=== PATIENT | female | born 1990 ===

== ENCOUNTER 2017-07-23 08:08 | Emergency (ER) | payer OTHER ==
[2017-07-23 08:08] VITALS: BMI 24.7
--- NOTE | 2017-07-23 09:07 | C.PDOC ---
History Of Present Illness 26 y/o female presents to ED with complaints of cough and body aches since yesterday. Patient is at ED with son who developed flu like symptoms. Patient denies vomiting, nausea, chest pain, diarrhea or any other complaints at this time. Time Seen by Provider: 07/23/17 08:28 Chief Complaint (Nursing): Cough, Cold, Congestion History Per: Patient History/Exam Limitations: no limitations Onset/Duration Of Symptoms: Days Current Symptoms Are (Timing): Still Present Associated Symptoms: Cough Past Medical History Reviewed: Historical Data, Nursing Documentation, Vital Signs Vital Signs: Last Vital Signs Temp 98.3 F 07/23/17 09:28 Pulse 80 07/23/17 09:28 Resp 16 07/23/17 09:28 BP 123/73 07/23/17 09:28 Pulse Ox 97 07/23/17 09:51 - Medical History PMH: No Chronic Diseases Surgical History: No Surg Hx - [facility] Procedures DELIVERY OF PRODUCTS OF CONCEPTION, EXTERNAL APPROACH (11/23/15) INTRODUCE OF OTH THERAP SUBST INTO FEM REPROD, VIA OPENING (11/23/15) REPAIR PERINEUM MUSCLE, OPEN APPROACH (11/23/15) Family History: States: No Known Family Hx - Social History Hx Alcohol Use: No Hx Substance Use: No - Immunization History Hx Tetanus Toxoid Vaccination: No Hx Influenza Vaccination: No Hx Pneumococcal Vaccination: No Review Of Systems Constitutional: Negative for: Fever, Chills Respiratory: Positive for: Cough Gastrointestinal: Negative for: Nausea, Vomiting, Diarrhea Musculoskeletal: Positive for: Other (body aches) Skin: Negative for: Rash Physical Exam - Physical Exam Appears: Non-toxic, No Acute Distress Skin: Warm, Dry, No Rash Head: Atraumatic, Normacephalic Eye(s): bilateral: Normal Inspection, EOMI Ear(s): Bilateral: Normal Nose: Normal, No Flaring, No Discharge Oral Mucosa: Moist Throat: Normal, No Erythema, No Exudate Neck: Supple Cardiovascular: Rhythm Regular, No Murmur Respiratory: Normal Breath Sounds, No Rales, No Rhonchi, No Wheezing Gastrointestinal/Abdominal: Soft, No Tenderness, No Guarding, No Rebound Extremity: Bilateral: Atraumatic, Normal Color And Temperature, Normal ROM Neurological/Psych: Oriented x3, Normal Speech Gait: Steady ED Course And Treatment O2 Sat by Pulse Oximetry: 97 (RA) Pulse Ox Interpretation: Normal Medical Decision Making Medical Decision Making: Patient with multi-symptom complaints, and sick child with flu like symptoms. Patient has not received Flu vaccine this season. Based on history, exam findings and widespread influenza will treat for Influenza. First dose Tamiflu given in ED. Patient appears non-toxic and in no distress. Rx given. Patient advised to rest, drink fluids and take medications for supportive treatment. Patient stable for discharge and given follow up instructions. Disposition - Disposition Referrals: [facility] [Outside] [facility] [Outside] Disposition: HOME/ ROUTINE Disposition Time: 09:07 Condition: GOOD Additional Instructions: You have influenza. Take Tamiflu twice a day for 5 days. Take Tylenol or Motrin alternating every 4-6 hours for Fever 100.4F or higher. Rest and drink plenty of fluids. Try symptomatic relief. Symptoms can last 7-10 days. Follow up with your primary medical doctor or clinic in 2-5 days for further evaluation. Return to the emergency department at any time if symptoms persist or worsen. Usted tiene influenza [place] Tamiflu dos veces al da artemio 5 putnam. [place] Tylenol o Motrin alternando cada 4-6 horas para Fiebre 100.4F o superior. Descansa y diixe muchos lquidos. Tratar alivio sintomtico. Los sntomas pueden durar de 7 a 10 putnam. Marita un seguimiento con schofield mdico primario o clnica en 2-5 putnam para cliff evaluacin adicional. Regrese al departamento de emergencia en cualquier momento si los sntomas persistir o empeorar. Prescriptions: Oseltamivir [Tamiflu] 75 mg PO BID #10 cap Instructions: Influenza (ED) Forms: [facility] (Albanian), Work Excuse Print Language: BELARUSIAN - POA Present On Arrival: None - Clinical Impression Clinical Impression: Influenza-like illness - PA / EDGE DYER / Resident Statement MD/DO has reviewed & agrees with the documentation as recorded. - Scribe Statement The provider has reviewed the documentation as recorded by the Scribe Milly Adame All medical record entries made by the Scribe were at my direction and personally dictated by me. I have reviewed the chart and agree that the record accurately reflects my personal performance of the history, physical exam, medical decision making, and the department course for this patient. I have also personally directed, reviewed, and agree with the discharge instructions and disposition.
[2017-07-23 09:30] VITALS: BP 123/73; PULSE 80; RESP 16; TEMP 98.3
[2017-07-23 09:37] VITALS: O2SAT 97
== END 2017-07-23 09:30 | disposition home or self-care (01) ==
LOC: C.ER 08:08
DX: J11.1 Influenza due to unidentified influenza virus with other respiratory manifestations (principal)